=== PATIENT | male | born 1940 | race Caucasian/White ===

== ENCOUNTER → 2017-01-05 | Outpatient (CLI) | payer MEDICARE ==
[~2017-01-05] MED LIST: ASPI-730 PO; CALC-603 PO; FLUT16SP12 NS; MULT-806 PO; OMEP40CA11 PO
== END ==
LOC: SS 20:00
PROVIDERS: ATTEND Psychiatry & Neurology Neurology
DX: G47.33 Obstructive sleep apnea (adult) (pediatric) (principal); G47.34 Idiopathic sleep related nonobstructive alveolar hypoventilation; G47.10 Hypersomnia, unspecified; G47.61 Periodic limb movement disorder